=== PATIENT | male | born 1980 | race Caucasian/White ===

== ENCOUNTER 2016-11-13 19:46 | Inpatient (IN) ==
[2016-11-13] MEDS ORDERED: Aspirin 81 MG TAB.CHEW PO ONE (20:17)
[2016-11-13] MEDS ORDERED: *HR* Ticagrelor 90 MG TABLET PO ONE (20:18)
[2016-11-13] MEDS ORDERED: Aspirin 81 MG TAB.CHEW ONE (20:20)
[2016-11-13] MEDS ORDERED: BIVALIRUDIN IVC SCH (20:30)
[2016-11-13] MEDS ORDERED: SODIUM CHLORIDE 0.9% IVC SCH (20:30)
[2016-11-13 20:36] LABS: INR 1.2; Prothrombin Time 12.6 Seconds (9.4-12.1)
[2016-11-13] MEDS ORDERED: Nitroglycerin 1,000 MCG/10 ML VIAL IV ONE (20:36)
[2016-11-13] MEDS ORDERED: *HR* Heparin 10,000 UNIT/10 ML VIAL ONE (20:36)
[2016-11-13] MEDS ORDERED: 0.9 % Sodium Chloride 1,000 ML ONE ×2 (20:36→20:57)
[2016-11-13] MEDS ORDERED: Heparin 1,000 UNITS/500 mL NS 500 ML ONE (20:36)
[2016-11-13 20:38] LABS: Activated Partial Thrombo Time 29.1 Seconds (26.0-36.0)
[2016-11-13 20:39] LABS: Basophils % 0.3 %; Eosinophils % 0.2 %; Hematocrit 50.6 % (37.5-50.1); Hemoglobin 16.8 g/dL (12.9-16.9); Immature Granulocytes % 0.3 % (0-4); Lymphocytes # 1.9 K/mcL (0.6-4.6); Lymphocytes % 15.9 %; Mean Corpuscular HGB Conc 33.2 g/dL (31.6-35.5); Mean Corpuscular Hemoglobin 31.4 pg (28.0-33.3); Mean Corpuscular Volume 94.6 fL (83.0-100.0); Mean Platelet Volume 9.4 fL (9.4-12.4); Monocytes # 0.6 K/mcL (0.0-1.3); Monocytes % 5.4 %; Neutrophils # 9.3 K/mcL (1.6-8.9); Platelet Count 304 K/mcL (140-400); Red Blood Count 5.35 M/mcL (4.19-5.50); Red Cell Distribution Width 14.1 % (11.5-14.5); Segmented Neutrophils % 77.9 %
--- NOTE | 2016-11-13 20:40 | Pre-Sedation Evaluation ---
<Damian Patel - Last Filed: 11/13/16 21:22> Pre-sedation evaluation - Pre-sedation checklist Date of procedure: 11/13/16 Procedure: LHC and possible PCI Recent Vitals: Last Vital Signs Temp 0 F L 11/13/16 20:37 Pulse 82 11/13/16 20:37 Resp 16 11/13/16 20:37 BP 120/95 11/13/16 20:37 Pulse Ox 98 11/13/16 20:37 H&P (including ROS) documented in medical record: Yes Previous reaction to sedatives/anesthetics: No Dietary Status: No solid food in preceding 4 hrs and no liquid in preceding 2 hrs Airway Assessment: Patient can open mouth completely, TMJ function normal Dentition: No loose teeth or bridges Possible difficult airway: No ASA Classification *see protocol: CLASS III-Severe systemic disease Plan of Care: Pt appropriate candidate for procedure/moderate/conscious sedation , Risks/benefits of procedure/sedation discussed w/ patient/family, If not NPO; Risk of intake outweiged by necessity to perform procedure <Master Wynne - Last Filed: 11/14/16 02:12> Pre-sedation evaluation - Pre-sedation checklist Recent Vitals: Last Vital Signs Temp 0 F L 11/13/16 20:37 Pulse 80 11/13/16 20:51 Resp 11/13/16 20:51 BP 121/90 11/13/16 20:51 Pulse Ox 98 11/13/16 20:51
--- NOTE | 2016-11-13 20:43 | Cardiology History & Physical ---
Date of Encounter: 11/13/16 Time of Encounter: 20:40 Assessment and Plan (1) ST elevation (STEMI) myocardial infarction involving left anterior descending coronary artery Current Visit: Yes Status: Acute Acute anterior ST elevation AR. Patient will be taken to the catheter lab for urgent angiography and possible intervention. Risks benefits and alternatives explained to patient all questions answered. He agrees to proceed. He has been loaded with aspirin and presented to ER. Will check echocardiogram in a.m. we will institute beta blockers statins and ALFREDA inhibitors. The assessment and plan as outlined above was discussed with the patient and/or family members who expressed understanding and agreement. All questions were answered. History of Present Illness Chief complaint: Chest pain HPI: Mr. Finnegan is a 36 year old male no previous known cardiac history who presents to the ER with chest pain since 1 PM this afternoon. Associated with diaphoresis. EKG showed anterior ST elevations. He has severe generalized anxiety disorder and initially he thought it is having a panic attack. He describes severe midsternal chest pain nonradiating associated with some diaphoresis. He currently continues to have chest pain. His EKG shows anterior ST elevations in V2 through V6 and one in aVL. He says he had a syncopal episode 2 earlier today he is in normal sinus rhythm and is hemodynamically stable currently Past Med Surg Social Fam HX - Past Medical History Medical history: no medical history Psychiatric history: anxiety, bipolar, depression - Past Surgical History Surgical History: other - Social History Smoking Status: Current every day smoker Smokeless Tobacco Status: No Alcohol use: occasionally Drug use: opiates, marijuana, prescription drug abuse, other Medications and Allergies Gabapentin [Neurontin] 600 mg PO TID 05/13/15 [History] LORazepam [Ativan] 1 mg PO TID #15 tablet 05/14/15 [Rx] LORazepam [Ativan] 0.5 mg PO TID PRN #7 tablet 10/14/16 [Rx] Allergies No Known Allergies Allergy (Verified 11/13/16 19:49) All Systems Review: A 10-system review of systems was performed and is negative for pertinent findings except as documented above in the HPI. Physical Examination Vital Signs, Last 4 Hours Temp Pulse Resp BP Pulse Ox 11/13/16 20:37 0 F L 82 16 120/95 98 11/13/16 20:28 82 16 121/90 95 11/13/16 20:07 93 16 127/98 96 11/13/16 19:49 98.3 F 92 18 137/87 96 General: Conversant, No Apparent Distress HEENT: Atraumatic, Normocephaly, Mucus Membranes Moist Neck: No JVD, Normal carotid pulses Cardiac: Reg Rate and Rhythm, Normal S1 and S2, No Murmur Lungs: Normal Breath Sounds, No Wheeze, Rales, Rhonchi Neuro: Alert and responsive, No focal deficits noted Abdomen: Soft, Non-Tender Skin: No rashes noted on visualized skin Musculoskeletal: No Chest Wall Tenderness Extremities: No Clubbing, No Cyanosis, No Edema, Normal Pulses Results 11/13/16 20:20 Lab Results 11/13/16 20:20 INR 1.2 - EKG Interpretation EKG results cardiology: personally reviewed (Normal sinus rhythm acute anterolateral myocardial infarction)
[2016-11-13 20:44] LABS: Alanine Aminotransferase 25 Units/L (0-55); Albumin 4.2 g/dL (3.5-5.0); Albumin/Globulin Ratio 1.1 (1.1-2.2); Alkaline Phosphatase 107 Units/L (38-126); Aspartate Amino Transferase 70 Units/L (5-34); BUN/Creatinine Ratio 7 (6-26); Bilirubin,Direct 0.2 mg/dL (0.0-0.5); Bilirubin,Indirect 0.1 mg/dL (0.0-1.2); Bilirubin,Total 0.3 mg/dL (0.2-1.2); Blood Urea Nitrogen 6 mg/dL (8-26); Calcium 9.7 mg/dL (8.6-10.8); Carbon Dioxide 22 mEq/L (19-29); Chloride 103 mEq/L (98-109); Globulin 3.9 g/dL (2.4-3.5); Glucose 111 mg/dL (70-99); Osmolality,Calculated 284 (280-300); Sodium 138 mEq/L (136-145); Total Protein 8.1 g/dL (6.0-8.3); eGFR For African Americans > 60 (> 60); eGFR For Non-African Americans > 60 (> 60)
[2016-11-13 20:45] LABS: Potassium 4.4 mEq/L (3.5-4.5)
[2016-11-13] MEDS ORDERED: *HR* Bivalirudin 250 MG VIAL IVC ONE (20:45)
[2016-11-13] MEDS ORDERED: Tirofiban 5 MG/100ML 0 MG/0 ML BAG IV ONE (20:45)
[2016-11-13] MEDS ORDERED: *HR* FentaNYL (PF) 100 MCG/2 ML VIAL ONE (20:46)
[2016-11-13] MEDS ORDERED: *HR* Midazolam HCl 2 MG/2 ML VIAL ONE (20:46)
--- NOTE | 2016-11-13 20:59 | Emergency Department Note ---
Disposition Clinical Impression: ST elevation (STEMI) myocardial infarction involving left anterior descending coronary artery Disposition: Admitted As Inpatient Condition: Serious Time of Disposition: 20:51 Chest Pain HPI - General Chief Complaint: ED Psychiatric Symptoms Stated Complaint: Panic Attack w/ CP Time Seen by Provider: 11/13/16 20:17 Source: patient Limitations: no limitations Vital Signs Reviewed: Yes Nursing Notes Reviewed: Yes - History of Present Illness HPI Narrative: 36-year-old male with past medical history of anxiety and bipolar presents to emergency department complaining 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 He states that at 10 AM in the morning he began to feel anxious and thought that he was having a manic episode. Around 1300 he began having chest pain in his left anterior chest that did not radiate anywhere. He states that he was diaphoretic & intermittently nauseous. He thought it was a panic attack , but it just did not go away. He denies headache, dizziness, SOB, diarrhea, rashes. He does say that he was syncopal earlier in the day. He is a former IV drug user. He took a few Xanax earlier to try to calm his anxiety. He does also admit to smoking marijuana recreationally. He does not have a personal cardiac history, however he does state that his grandfather had an AL in his 40s. Severity scale (1-10): 8 - Related Data Home Medications Medication Instructions Recorded Confirmed Gabapentin [Neurontin] 600 mg PO TID 05/13/15 05/13/15 Previous Rx's Medication Instructions Recorded LORazepam [Ativan] 1 mg PO TID #15 tablet 05/14/15 LORazepam [Ativan] 0.5 mg PO TID PRN #7 tablet 10/14/16 Allergies Allergy/AdvReac Type Severity Reaction Status Date / Time No Known Allergies Allergy Verified 11/13/16 19:49 All systems ED: reviewed and negative except as stated. Chest Pain PMH - Past Medical History Medical history: Reports: no medical history Surgical history: Reports: other Psychiatric history: Reports: anxiety, bipolar, depression - Social History Smoking Status: Current every day smoker Alcohol use: Reports: occasionally Drug use: Reports: opiates, marijuana, prescription drug abuse, other Physical Exam General: Alert and in no acute distress Skin: Warm, dry, intact Head: Normocephalic and atraumatic Eye: PERRLA, EOMI Neck: Supple, trachea midline and no tenderness Cardiovascular: RRR, no murmur, normal perfusion, peripheral pulses equal b/l UE /LE Respiratory: CTAB, no wheezing, cough, or respiratory distress GI: Soft, nontender, nondistended. Bowel sounds present Musculoskeletal: Muscle strength 5/5, no tenderness, swelling or deformity Neuro: A&O to person, place, time and situation. 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 He states that at 10 AM in the morning he began to feel anxious and thought that he was having a manic episode. Around 1300 he began having chest pain in his left anterior chest that did not radiate anywhere. He states that he was diaphoretic & intermittently nauseous. He thought it was a panic attack , but it just did not go away. He denies headache, dizziness, SOB, diarrhea, rashes. He does say that he was syncopal earlier in the day. He is a former IV drug user. He took a few Xanax earlier to try to calm his anxiety. He does also admit to smoking marijuana recreationally. He does not have a personal cardiac history, however he does state that his grandfather had an AL in his 40s. Patient was brought directly back from triage after EKG revealed acute STEMI. ST Elevation in aVL, V2, V3, V4, V5, V6. Cardiology paged. Case discussed with Dr. Patel who requests ASA, Brilinta 180mg and angiomax to be dosed at clinical lab specialist dose by pharmacy. Patient to clinical lab specialist at 2050. - Consultations Consultation #1: Case discussed with Dr. Patel, inside sales coordinator Time: 20:15 Vital Signs Temperature 98.3 F 11/13/16 19:49 Pulse Rate 92 11/13/16 19:49 Respiratory Rate 18 11/13/16 19:49 Blood Pressure 137/87 11/13/16 19:49 O2 Sat by Pulse Oximetry 96 11/13/16 19:49 Temperature 97.9 F 11/14/16 04:00 Pulse Rate 62 11/14/16 04:31 Respiratory Rate 18 11/14/16 04:00 Blood Pressure 117/97 11/14/16 04:00 O2 Sat by Pulse Oximetry 97 11/14/16 04:00 Oxygen Delivery Oxygen Delivery Room Air Chest Pain - Medical Records Medical records reviewed: Yes I reviewed the patient's medical records. - Lab Data Lab results reviewed: Yes I reviewed the patient's lab results. Result diagrams: 11/14/16 03:17 11/14/16 03:17 Lab Results 11/13/16 11/13/16 11/13/16 Range/Units 20:11 20:20 20:20 WBC 11.9 H (4.3-11.1) K/mcL RBC 5.35 (4.19-5.50) M/mcL Hgb 16.8 (12.9-16.9) g/dL Hct 50.6 H (37.5-50.1) % MCV 94.6 (83.0-100.0) fL MCH 31.4 (28.0-33.3) pg MCHC 33.2 (31.6-35.5) g/dL RDW 14.1 (11.5-14.5) % Plt Count 304 (140-400) K/mcL MPV 9.4 (9.4-12.4) fL Immature Gran % 0.3 (0-4) % Seg Neutrophils % 77.9 % Lymphocytes % 15.9 % Monocytes % 5.4 % Eosinophils % 0.2 % Basophils % 0.3 % Neutrophils # 9.3 H (1.6-8.9) K/mcL Lymphocytes # 1.9 (0.6-4.6) K/mcL Monocytes # 0.6 (0.0-1.3) K/mcL Eosinophils # 0.0 (0.0-0.6) K/mcL Basophils # 0.0 (0.0-0.2) K/mcL PT 12.6 H (9.4-12.1) Seconds INR 1.2 APTT 29.1 (26.0-36.0) Seconds Sodium 138 (136-145) mEq/L Potassium 4.4 (3.5-4.5) mEq/L Chloride 103 (98-109) mEq/L Carbon Dioxide 22 (19-29) mEq/L BUN 6 L (8-26) mg/dL Creatinine 0.85 (0.72-1.25) mg/dL Est GFR ( Amer) > 60 (> 60) Est GFR (Non-Af Amer) > 60 (> 60) BUN/Creatinine Ratio 7 (6-26) Glucose 111 H (70-99) mg/dL POC Glucose (58-89) Calculated Osmolality 284 (280-300) Calcium 9.7 (8.6-10.8) mg/dL Total Bilirubin 0.3 (0.2-1.2) mg/dL Direct Bilirubin 0.2 (0.0-0.5) mg/dL Indirect Bilirubin 0.1 (0.0-1.2) mg/dL AST 70 H (5-34) Units/L ALT 25 (0-55) Units/L Alkaline Phosphatase 107 (38-126) Units/L Troponin I (0-0.03) ng/mL Serum Total Protein 8.1 (6.0-8.3) g/dL Albumin 4.2 (3.5-5.0) g/dL Globulin 3.9 H (2.4-3.5) g/dL Albumin/Globulin Ratio 1.1 (1.1-2.2) 11/13/16 11/13/16 Range/Units 20:20 21:41 WBC (4.3-11.1) K/mcL RBC (4.19-5.50) M/mcL Hgb (12.9-16.9) g/dL Hct (37.5-50.1) % MCV (83.0-100.0) fL MCH (28.0-33.3) pg MCHC (31.6-35.5) g/dL RDW (11.5-14.5) % Plt Count (140-400) K/mcL MPV (9.4-12.4) fL Immature Gran % (0-4) % Seg Neutrophils % % Lymphocytes % % Monocytes % % Eosinophils % % Basophils % % Neutrophils # (1.6-8.9) K/mcL Lymphocytes # (0.6-4.6) K/mcL Monocytes # (0.0-1.3) K/mcL Eosinophils # (0.0-0.6) K/mcL Basophils # (0.0-0.2) K/mcL PT (9.4-12.1) Seconds INR APTT (26.0-36.0) Seconds Sodium (136-145) mEq/L Potassium (3.5-4.5) mEq/L Chloride (98-109) mEq/L Carbon Dioxide (19-29) mEq/L BUN (8-26) mg/dL Creatinine (0.72-1.25) mg/dL Est GFR ( Amer) (> 60) Est GFR (Non-Af Amer) (> 60) BUN/Creatinine Ratio (6-26) Glucose (70-99) mg/dL POC Glucose 107 H (58-89) Calculated Osmolality (280-300) Calcium (8.6-10.8) mg/dL Total Bilirubin (0.2-1.2) mg/dL Direct Bilirubin (0.0-0.5) mg/dL Indirect Bilirubin (0.0-1.2) mg/dL AST (5-34) Units/L ALT (0-55) Units/L Alkaline Phosphatase (38-126) Units/L Troponin I 3.64 H* (0-0.03) ng/mL Serum Total Protein (6.0-8.3) g/dL Albumin (3.5-5.0) g/dL Globulin (2.4-3.5) g/dL Albumin/Globulin Ratio (1.1-2.2) - Radiology Data Radiology results reviewed: Yes I reviewed the patient's radiology results. Chest X-Ray 11/13/16 20:17 IMPRESSION: No acute cardiopulmonary abnormality. D/ / Xavier Thakur MD / Xavier Thakur MD Interpreting Provider: Xavier Thakur MD - EKG Data EKG attestation: Yes I reviewed and interpreted this EKG. EKG results narrative: Sinus rhythm with ST elevation in aVL, V2, V3, V4, V5, V6. No prior for comparision. Critical Care Time Critical Care Time: Yes Total Critical Care Time: 35 Attestation: Acute STEMI Attestation Statement - Attestation Attestation: Dr. Wynne: Patient seen in conjunction with resident Dr. Gonzalez: Please see her chart for complete documentation. I spent [id number] time with the patient and agree with the treatment and disposition. Patient has had chest pain at rest for 6-7 hours upon presentation. Diaphoresis really resolved. I improved at the time of evaluation but still present. No prior known heart disease. He smokes and admits to doing benzodiazepines orally from the street on a regular daily basis. Patient had delayed presentation today because he thought his chest pain was the same chest pain he always had anxiety. A ST elevation AL protocol was called the moment I reviewed the EKG I immediately talked with the inside sales coordinator Dr. Patel who called in the Grid Casting Machine Operator Helper team and took the patient to catheterization lab; the thread grinder ordered Z aspirin, Proventil, and Angiomax verbally.
[2016-11-13] MEDS ORDERED: Nitroglycerin 0.4 MG TAB.SUBL SL PRN (21:23)
[2016-11-13] MEDS ORDERED: Ondansetron 4 MG/2 ML VIAL IVP PRN (21:23)
[2016-11-13] MEDS ORDERED: *HR* OxyCODONE/APAP 5/325 TABLET PO PRN (21:23)
[2016-11-13] MEDS ORDERED: *HR* HYDROcodone/Acet 5/325 mg TABLET PO PRN (21:23)
[2016-11-13] MEDS ORDERED: 0.9 % Sodium Chloride 1,000 ML IVC SCH (21:30)
--- NOTE | 2016-11-13 21:38 | Invasive Diagnostic Lab ---
Name: Nakul Finnegan Date of Study: 11/13/2016 Date: 1980 Ht: 180.0 cm /70.9 in Medical Record#: [id number] Age: 36 Wt: 77.1 kg / 169.98 lb Account/Order#: [id number] Gender: Male BSA: 1.97 Order #: [id number] Fluoro Dose: 785 mGy BMI: 23.8 Procedure Physician: Damian Patel MD Referring MD: Referring MD: Procedures Performed: PCI of Acute NM LEFT HEART CATH Indications: STEMI Impressions: There is severe one vessel coronary artery disease. LV- Lower limits of normal, EF35% Patient had successful PTCA/Drug-Eluting Stent placement in the mid LAD. Recommendations: Optimal medical therapy of patient's disease. Aggressive risk factor modification. History/Risk Factors: Current/Recent Smoker Procedure Access obtained in the right Femoral artery by percutaneous puncture Patient had successful PTCA/Drug-Eluting Stent placement in the mid LAD. Complications: None Contrast: Isovue 149ml Closure Device: Perclose ProGlide Hemodynamics: Pressures Site Systolic/ A Wave Diastolic/ V Wave End Diastolic/ Mean HR AO 122 96 109 147 AO 106 89 98 85 LV 131 11 45 82 LV 102 43 48 85 AO 114 89 100 85 LV Ventriculography Ejection Method: LV Gram Ejection Fraction: 35% Wall Motion: BARGER Anterobasal Normal Anterolateral Mild Hypokinesis Apical: Akinesis Inferoapical Normal Inferobasal Normal Coronary Dominance: right Lesion Findings/Interventions * Left Main Coronary Artery The LMCA is angiographically free of disease. * Left Anterior Descending There is a 20 mm long, 90% stenosis in the Mid LAD. The lesion has a SERGIO flow of 2 and has no thrombus present. An intervention was performed on the Mid LAD with a final stenosis of 0%. There were no lesion complications. The final SERGIO flow was 3. * Circumflex The Circumflex is angiographically free of disease. The 1st Marginal is angiographically free of disease. * Right Coronary Artery The RCA is angiographically free of disease. The Right PDA is angiographically free of disease. Interventional Device(s) Vessel Segment Type Name Diameter (mm) Length (mm) Mid LAD Balloon NC Emerge 3 12 Mid LAD Drug Eluting Stent Synergy 2.75 20 Updated by Pennie Mar RT (R) on 11/13/2016 9:28:21 PM Damian Patel MD electronically signed on 11/13/2016 9:31:51 PM with status of Final
--- NOTE | 2016-11-13 21:50 | Invasive Diagnostic Lab Proc ---
Name: Nakul Finnegan Date of Study: 11/13/2016 Date: 1980 Ht: 70.9in Medical Record#: [id number] Age: 36 Wt: 169.98lb Gender: Male BSA: 1.97 Order #: [id number] BMI: 23.8 Physicians Procedure Physician: Damian Patel MD Referring MD: Referring MD: Staff Name Position Time In Sites, [facility] RT (R) Monitor 09:02 PM Adelaida Calderon RT (R) Scrub 09:02 PM Silvana Garg RN Certified Peer Specialist 09:03 PM Indications Indication STEMI Procedures Performed Procedure PRQ CARD REVASC [place] 1 VSL L HRT ARTERY/VENTRICLE ANGIO Pre-Procedure Checklist Informed consent is complete signed and on chart. H\\T\\P is on chart. ID band is on and ID verified with patient. Patient NPO for procedure The procedure was described for the patient and questions were answered. Blood Pressure: 118/72 ECG is on chart. Rhythm: NSR Plan of Care Patient will tolerate the procedure without complications. Adequate level of comfort will be maintained. Hemodynamics will remain stable Patient will recover from procedure without complications. Respiratory function will be maintained. Cardiac rhythm will remain stable. Patient temperature will be maintained. Patient and/or family have verbalized understanding of the procedure. Patient Education Chief Complaint/Reason for Test: Cardiac Cath Developmental Category: Adult (18-64 years) Developmentally Appropriate for Age: Yes Learning Barriers: None Education Needs: Procedure Education Method: Verbal Information Taught: Cardiac Cath Educational Evaluation: Able to repeat information Intravenous Access Time IV Size Location DC'd Fluid/Drip Rate Units RN 09:10 PM 18g 1 14" Patent On Arrival Lt Arm 0.9NaCl 25 ml/hr Silvana Garg RN 18g 1 14" Patent On Arrival Rt Antecubital Silvana Garg RN Allergies NKDA NO KNOWN DRUG ALLERGIES No Known Allergies Vital Signs Time BP (mmHg) HR (bpm) O2 Sat. RR (bpm) LOC 09:11 PM 132 / 87 82 97 % 16 5 = Fully awake and oriented or at pre-proc level 08:58 PM 132 / 87 82 97 % 15 09:03 PM 127 / 85 79 97 % 24 09:08 PM 118 / 72 88 94 % 15 09:13 PM 116 / 75 80 92 % 18 09:18 PM 126 / 74 82 92 % 19 09:23 PM 130 / 84 81 98 % 13 Procedural Medications Time Medication Dose Units Method Given By 09:03 PM Oxygen 2 L/min nasal cannula Silvana Garg RN 09:03 PM Versed 1 mg Intravenous Silvana Garg RN 09:03 PM Fentanyl 50 mcg Intravenous Silvana Garg RN 09:04 PM Lidocaine 2% 14 ml Subcutaneous Damian Patel MD 09:06 PM Nitroglycerin 200 mcg Intracoronary Damian Patel MD 09:08 PM Versed 1 mg Intravenous Silvana Garg RN 09:08 PM Fentanyl 50 mcg Intravenous Silvana Garg RN 09:08 PM Angiomax 1.75mg/kg/hr: 26 ml Intravenous Silvana Garg RN ASA Classification: Emergent Procedure: ASA score is assumed Sivakumar Score Preprocedure Postprocedure Activity 2- Moves 4 extremities sustained head lift Activity 2- Moves 4 extremities sustained head lift Circulation 2- SBP +/= 20 points of pre-anesthetic level Circulation 2- SBP +/= 20 points of pre-anesthetic level Consciousness 2- Awake and alert oriented x 3 Consciousness 2- Awake and alert oriented x 3 O2 Saturation 2- Able to maintain O2 satruation of 92% on room air O2 Saturation 2- Able to maintain O2 satruation of 92% on room air Respiratory 2- Able to deep breathe and cough well Respiratory 2- Able to deep breathe and cough well Total Score 10 Total Score 10 Contrast Agent: Isovue Diagnostic Contrast: 149 ml Total Contrast: 149 ml Fluoro Dose: 785 mGy Procedure Log Time Note Enter By 08:58 PM CathStat 08:58 PM Vitals capture started with the following parameters, Patient=Adult, Interval=5 min, Initial Kszqpjku=158 mmHg, Deflation Rate=5 mmHg, Cuff placed on Left Leg 08:58 PM Pt arrived to calibration laboratory technician 2 at 20:58 tsites 08:58 PM HR=82 bpm, EOQZ=693/87 mmhg, SpO2=97 %, Resp=15 B/min 09:01 PM Recorded ECG: HR=90 Condition=Condition 1 09:02 PM Physician arrived 21:02 tsites 09:02 PM Meet and greet completed tsites 09:02 PM Procedure start 21:02 tsites 09:02 PM Case Delayed No tsites 09:02 PM Patient charges- Angio tray pack, Navilyst 3mm J, Pulse Oximetry and ACIST tubing and transducer tsites 09:02 PM Pennie Mar RT (R) Position: Monitor Time in: 21:02 tsites 09:02 PM Adelaida Calderon RT (R) Position: Scrub Time in: 21:02 tsites 09:03 PM Silvana Garg RN Position: Certified Peer Specialist Time in: 21:03 tsites 09:03 PM Hair removed from procedure site in holding area using clippers. Bilateral groin prepped with Chloraprep by Pennie Mar RT (R) then patient draped. Skin intact. tsites 09:03 PM Time: 21:03 Oxygen on at 2 L/min per nasal cannula by Silvana Garg RN tsites 09: PM Time: 21:03 Versed 1 mg Intravenous Given by Silvana Garg RN tsites 09:03 PM Time: 21:03 Fentanyl 50 mcg Intravenous Given by Silvana Garg RN tsites 09:03 PM HR=79 bpm, UOLG=558/85 mmhg, SpO2=97.0 %, Resp=24 B/min 09:04 PM Time out performed according to hospital policy tsites 09:04 PM Time: 21:04 14 ml Lidocaine 2% to right groin Subcutaneous Given by Damian Patel MD tsites 09:04 PM Access obtained by percutaneous puncture. 6Fr 10cm Terumo [place] sheath placed in right Femoral artery. [id number] tsites 09:04 PM PCI Status Emergency tsites 09:04 PM 6Fr XB LAD 3.5 [place] Bright Tip guide catheter was used to cannulate the PCI vessel successfully. reused? No tsites 09:05 PM 0.035 145cm Navilyst 3mmJ wire [id number] tsites 09:05 PM Inflation device was opened. tsites 09:05 PM LCA angiography performed in multiple views. tsites 09:05 PM Recorded Pressure: Ao, QT=024, Condition=Condition 1 (Aorta) Ao 122/96/109 09:07 PM Time: 21:06 Nitroglycerin 200 mcg Intracoronary Given by Damian Patel MD tsites 09:08 PM Time: 21:08 Versed 1 mg Intravenous Given by Silvana Garg RN tsites 09:08 PM Time: 21:08 Fentanyl 50 mcg Intravenous Given by Silvana Garg RN tsites 09:08 PM Time: 21:08 Angiomax 1.75mg/kg/hr: 26 ml Intravenous Given by Silvana Garg RN Manzano pump tsites 09:08 PM .014 [place] 182cm guide wire across target lesion- successful. reused? No tsites 09:08 PM HR=88 bpm, XZLM=628/72 mmhg, SpO2=94 %, Resp=15 B/min 09:09 PM Lesion found in Mid LAD. Pre Stenosis: 90 Pre SERGIO Flow: tsites 09:09 PM Mid/Distal Left Anterior Descending Coronary Artery and diagonal branches with 90% stenosis. If graft is supplying this area, % stenosis tsites 09:12 PM 2.75mm x 20mm Synergy drug-eluting stent across target lesion- successful Lot #[id number] tsites 09:12 PM Stent deployed @ 16 sabiha for 20 seconds tsites 09:12 PM Stent delivery system removed intact. tsites 09:13 PM 3.0 mm x 12mm NC Emerge balloon across target lesion- successful. reused? No tsites 09:13 PM Balloon inflated @ 14 sabiha for 8 seconds tsites 09:13 PM HR=80 bpm, FNAH=647/75 mmhg, SpO2=92.0 %, Resp=18 B/min 09:15 PM Balloon inflated @ 14 sabiha for 5 seconds tsites 09:15 PM Guide wire removed intact. tsites 09:15 PM Balloon catheter removed intact. tsites 09:16 PM Guide catheter removed intact. tsites 09:16 PM 5Fr FR 4 catheter inserted over the wire [facility] tsites 09:16 PM RCA angiography performed in multiple views. tsites 09:17 PM Recorded Pressure: Ao, HR=85, Condition=Condition 1 (Aorta) Ao 106/89/98 09:17 PM Coronary Dominance: right tsites 09:17 PM Catheter removed tsites 09:17 PM 5Fr Pigtail catheter inserted over the wire [facility] tsites 09:18 PM Catheter selectively placed in left ventricle tsites 09:18 PM Recorded Pressure: LV, HR=82, Condition=Condition 1 (Left Ventricle) LV 131/11/45 09:18 PM HR=82 bpm, SROY=242/74 mmhg, SpO2=92.0 %, Resp=19 B/min 09:19 PM Recorded Pressure: LV, Ao, HR=85, Condition=Condition 1 (Left Ventricle) LV 102/43/48, (Aorta) Ao 114/89/100 09:19 PM Bolus angiogram of left Ventricle complete: 8 ml/sec for a total of 24 mls tsites 09:19 PM Bolus angiogram of right Femoral complete: 4 ml/sec for a total of 7 mls tsites 09:20 PM Procedure completed at 21:19 tsites 09:21 PM Sign out completed: Radiation Dose 785 mGy Fluoro Time: 4.1 Isovue 370 - 200ml contrast 149 ml given by Damian Patel MD. Complications: NoneCardiac Rehab Consult needed: YesConfirmed administered medications: Yes tsites 09:21 PM Isovue 370 - 500ml,1 Bottle(s) used. tsites 09:22 PM Arterial sheath pulled, perclose closure device used and was Successful S/N. tsites 09:22 PM Post ECG NSR tsites 09:22 PM Post Blood Pressure 126/74 tsites 09:23 PM 21:23 Post Pulses Bilateral DP \\T\\ PT 2+ tsites 09:23 PM Information taught Cardiac Cath, PCI, and Perlose tsites 09:23 PM Education needs Procedure, Plan of Care, and Responsibilities of Patient in Care tsites 09:23 PM Learning barriers :None tsites 09:23 PM Education Methods Verbal tsites 09:23 PM Education evaluation Able to repeat information tsites 09:23 PM Site status No bleeding/hematoma - Rt Groin as reported by Adelaida Calderon RT (R) at 21:23 tsites 09:23 PM Opsite applied tsites 09:23 PM Plavix, Effient or Brilinta given Yes in ER tsites 09:23 PM HR=81 bpm, SUDE=910/84 mmhg, SpO2=98.0 %, Resp=13 B/min 09:34 PM Report given to josse OAKES Pt taken to ICU Room #10. 21:33 tsites 09:34 PM Delay to floor No tsites 09:34 PM Patient out of room: 21:34 tsites Complications Complication None Hemodynamics Pressures Site Systolic/A Wave Diastolic/V Wave Mean AO 122 96 109 AO 106 89 98 LV 131 11 45 LV 102 43 48 AO 114 89 100 Post Procedure Information Blood Pressure: 126/74 mmHg Rhythm: NSR Post procedural instructions were given Closure Device Time Device Success/Fail 11/13/2016 9:24:00 PM Perclose ProGlide Successful Site Checks Time Location Status Staff Sheath In? Note 09:23 PM Rt Groin No bleeding/hematoma Adelaida Calderon RT (R) Pulses Time Site Pre-Procedure Post-Procedure Note 11/13/2016 9:11:00 PM Bilateral DP \\T\\ PT 2+ 9:23:00 PM Bilateral DP \\T\\ PT 2+ Updated by Pennie Isabela RT (R) on 11/13/2016 9:45:29 PM Pennie Isabela RT electronically signed on 11/13/2016 9:46:02 PM with status of Final
[2016-11-14 03:24] LABS: Basophils % 0.1 %; Eosinophils # 0.1 K/mcL (0.0-0.6); Eosinophils % 1.1 %; Hematocrit 48.6 % (37.5-50.1); Hemoglobin 15.9 g/dL (12.9-16.9); Immature Granulocytes % 0.5 % (0-4); Lymphocytes % 23.1 %; Mean Corpuscular HGB Conc 32.7 g/dL (31.6-35.5); Mean Corpuscular Hemoglobin 31.5 pg (28.0-33.3); Mean Corpuscular Volume 96.4 fL (83.0-100.0); Mean Platelet Volume 8.9 fL (9.4-12.4); Monocytes # 0.8 K/mcL (0.0-1.3); Monocytes % 9.2 %; Neutrophils # 5.8 K/mcL (1.6-8.9); Platelet Count 211 K/mcL (140-400); Red Blood Count 5.04 M/mcL (4.19-5.50); Red Cell Distribution Width 14.2 % (11.5-14.5)
[2016-11-14 03:39] LABS: BUN/Creatinine Ratio 9 (6-26); Blood Urea Nitrogen 6 mg/dL (8-26); Calcium 8.8 mg/dL (8.6-10.8); Carbon Dioxide 21 mEq/L (19-29); Chloride 108 mEq/L (98-109); Glucose 95 mg/dL (70-99); Osmolality,Calculated 285 (280-300); Potassium 3.8 mEq/L (3.5-4.5); Sodium 139 mEq/L (136-145); eGFR For African Americans > 60 (> 60); eGFR For Non-African Americans > 60 (> 60)
[2016-11-14] MEDS: Aspirin 81 MG TAB.CHEW PO SCH (07:58)
[2016-11-14] MEDS: *HR* Ticagrelor 90 MG TABLET PO SCH ×2 (07:58→21:05)
--- NOTE | 2016-11-14 09:00 | Cardiology Progress Note ---
Date of Encounter: 11/14/16 Time of Encounter: 09:00 Assessment and Plan (1) ST elevation (STEMI) myocardial infarction involving left anterior descending coronary artery Current Visit: Yes Status: Acute - acute anterior ST elevation [place], family history of GF age 46 - patient was taken to [facility] and blocker [facility] labor urgently for angiography and CARMEL placement to mid LAD, dual antiplatelet uninterrupted for 1 year - ECHO ordered, cath EF 35% - started on ASA, berlinta, statin, BB, lisinopril - switching to Toprol XL 25 mg, HR has been 60s with Lopressor 25 - stressed medication compliance with ASA and Berlinta for the next year without missed doses, he just got back on medicaid and concern for affordability of antiplatelet, will consult nursing home social worker - tobacco cessation recommended, he is a 1 ppd - cardiac rehab consulted (2) History of bipolar disorder Current Visit: Yes Status: Acute - history of bipolar II he reports, has been without medications for past several months he reports - normally takes Lamictal in conjunction with Ativan and Gabapentin - psychiatry has been consulted - reportedly he is trying to be established at [facility] in [place] (3) Tobacco abuse Current Visit: Yes Status: Acute - tobacco cessation recommended, states he will likely switch to vapor e-cig as he has done in the past - craving now, nicotine patch prn Discussion w patient/family: The assessment and plan as outlined above was discussed with the patient and/or family members who expressed understanding and agreement. All questions were answered. Thank you for involving us in the care of your patient. Please call with any questions. Subjective Principal diagnosis: STEMI Interval history: Patient seen and examined at bedside. Complains of mild chest pressure, but he admits to being very anxious still. It is not nearly as severe as when he arrived in the ED. Discussed his diagnosis and importance of medication compliance. Denies any shortness of breath, headache, lightheadedness, nausea. Requests to see psychiatry as he has been without antipsychotic medications the past several months. Objective Vital Signs, Last 4 Hours Temp Pulse Resp BP Pulse Ox 11/14/16 08:25 72 11/14/16 08:01 98.2 F 72 22 116/87 97 11/14/16 07:00 61 23 120/83 96 11/14/16 06:00 66 22 111/80 95 General: Conversant, No Apparent Distress HEENT: Atraumatic, Normocephaly, Mucus Membranes Moist Neck: No JVD, Normal carotid pulses Cardiac: Reg Rate and Rhythm, Normal S1 and S2, No Murmur Lungs: Normal Breath Sounds, No Wheeze, Rales, Rhonchi Neuro: Alert and responsive, No focal deficits noted Abdomen: Soft, Non-Tender Skin: No rashes noted on visualized skin Musculoskeletal: No Chest Wall Tenderness Extremities: No Clubbing, No Cyanosis, No Edema, Normal Pulses Results 11/14/16 03:17 11/14/16 03:17 Lab Results 11/14/16 11/14/16 03:17 03:17 WBC 8.8 Hgb 15.9 Hct 48.6 Plt Count 211 Sodium 139 Potassium 3.8 Chloride 108 Carbon Dioxide 21 BUN 6 L Creatinine 0.69 L Glucose 95 Calcium 8.8 - Imaging and Cardiology Chest Xray: report reviewed, image reviewed Echo: pending Cardiac cath: report reviewed - EKG Interpretation EKG results cardiology: personally reviewed (did not reveal EKG in ER, this was post-cath mild ST elevations in V2-V3), normal ECG, sinus rhythm Consult Discharge Plan - Plan Referrals: NO,PCP [Primary Care Provider] -
--- NOTE | 2016-11-14 15:44 | Consult Note ---
Date of Encounter: 11/14/16 Time of Encounter: 15:00 Assessment & Recommendation (1) History of bipolar disorder Current visit: Yes Status: Acute Assessment & Recommendation: Patient has a history of bipolar disorder and treatments as an inpatient and outpatient in addition to history of substance abuse including nicotine and caffeine alcohol marijuana and others. He has been noncompliant with his follow -up appointments and medication, he responded well to gabapentin and lorazepam and currently is taking this medication and he has an appointment scheduled as outpatient in a mental health's clinic. Recommend that patient continue his outpatient mental health's care and maintain his medication he also was encouraged to reduce his smoking and caffeine intake and refrain from using any drugs. Patient is stable to be discharged and there are no acute psychiatric condition at this time. Thank you for consultation. History of Present Illness Patient: new to practice Requesting Physician: Vannesa Dumas Reason for consult: bipolar History of present illness: Mr. Finnegan is a 36 year old male admitted to the hospital for evaluation of chest pain. Psychiatric consultation was requested to evaluate bipolar disorder and recommend medications. Patient was interviewed he tells me he had a history of bipolar disorder for many years until me that he has been hospitalized in several hospitals including this one for manic episodes, he was tried on different medication including Seroquel 200 lithium and also its and he responded best to combination of gabapentin and lorazepam. Patient told me that he is scheduled for outpatient appointments at a mental health agency to be established as the patient. He also has a history of substance abuse including marijuana and alcohol and in addition to smoking cigarettes and consuming large amounts of caffeine. Patient did not present any evidence of manic or hypomanic episodes or depressive episodes or suicidal symptoms. CC: Vannesa Dumas Past Med Surg Social Fam HX - Past Medical History Medical history: no medical history - Past Psychiatric History Psychiatric history: Reports: bipolar, previous psychiatric hospitalization Family psychiatric history: Unknown Family History of Suicide: Unknown - Past Surgical History Surgical History: other - Social History Smoking Status: Current every day smoker Smokeless Tobacco Status: No Alcohol use: occasionally Drug use: opiates, marijuana, prescription drug abuse, other Medications & Allergies Gabapentin [Neurontin] 1,600 mg PO HS 11/14/16 [History] Gabapentin [Neurontin] 800 mg PO BID 11/14/16 [History] LORazepam [Ativan] 1 mg PO BID 11/14/16 [History] Lamotrigine 200 mg PO HS 11/14/16 [History] Allergies No Known Allergies Allergy (Verified 11/14/16 09:41) Review of Systems Psychiatric: Reports: mood swings Mental Status Exam Patient orientation: Yes Person, Yes Time, Yes Place Level of alertness: Alert Patient appearance: Appropriate, Well Groomed Behavior: calm, cooperative Psychomotor activity: Normal Eye contact: Maintains Eye Contact Mood description: Euthymic/stable Affect description: congruent with mood, full range Speech pattern: Normal rate, Normal rhythm, Normal tone Speech volume: Normal Thought process: Linear, Goal Oriented Thought content: No Suicidal ideation, No Homicidal ideation, No Overt delusions Perceptual disturbances: No Auditory hallucinations, No Visual hallucinations Attention span: Capable of Focused Attention Memory description: Grossly Intact Patient reliability: Reliable Historian Intelligence estimate: Average Judgment: Limited Insight: Partial Results - Vital Signs Vital signs: Temp Pulse Resp BP Pulse Ox 98.2 F 60 14 110/80 95 11/14/16 08:01 11/14/16 15:24 11/14/16 14:00 11/14/16 14:00 11/14/16 14:00 - Labs Labs: Laboratory Last Values WBC 8.8 K/mcL (4.3-11.1) 11/14/16 03:17 RBC 5.04 M/mcL (4.19-5.50) 11/14/16 03:17 Hgb 15.9 g/dL (12.9-16.9) 11/14/16 03:17 Hct 48.6 % (37.5-50.1) 11/14/16 03:17 MCV 96.4 fL (83.0-100.0) 11/14/16 03:17 MCH 31.5 pg (28.0-33.3) 11/14/16 03:17 MCHC 32.7 g/dL (31.6-35.5) 11/14/16 03:17 RDW 14.2 % (11.5-14.5) 11/14/16 03:17 Plt Count 211 K/mcL (140-400) 11/14/16 03:17 MPV 8.9 fL (9.4-12.4) L 11/14/16 03:17 Immature Gran % 0.5 % (0-4) 11/14/16 03:17 Seg Neutrophils % 66.0 % 11/14/16 03:17 Lymphocytes % 23.1 % 11/14/16 03:17 Monocytes % 9.2 % 11/14/16 03:17 Eosinophils % 1.1 % 11/14/16 03:17 Basophils % 0.1 % 11/14/16 03:17 Neutrophils # 5.8 K/mcL (1.6-8.9) 11/14/16 03:17 Lymphocytes # 2.0 K/mcL (0.6-4.6) 11/14/16 03:17 Monocytes # 0.8 K/mcL (0.0-1.3) 11/14/16 03:17 Eosinophils # 0.1 K/mcL (0.0-0.6) 11/14/16 03:17 Basophils # 0.0 K/mcL (0.0-0.2) 11/14/16 03:17 PT 12.6 Seconds (9.4-12.1) H 11/13/16 20:20 INR 1.2 11/13/16 20:20 APTT 29.1 Seconds (26.0-36.0) 11/13/16 20:20 Sodium 139 mEq/L (136-145) 11/14/16 03:17 Potassium 3.8 mEq/L (3.5-4.5) 11/14/16 03:17 Chloride 108 mEq/L (98-109) 11/14/16 03:17 Carbon Dioxide 21 mEq/L (19-29) 11/14/16 03:17 BUN 6 mg/dL (8-26) L 11/14/16 03:17 Creatinine 0.69 mg/dL (0.72-1.25) L 11/14/16 03:17 Est GFR ( Amer) > 60 (> 60) 11/14/16 03:17 Est GFR (Non-Af Amer) > 60 (> 60) 11/14/16 03:17 BUN/Creatinine Ratio 9 (6-26) 11/14/16 03:17 Glucose 95 mg/dL (70-99) 11/14/16 03:17 POC Glucose 107 (58-89) H 11/13/16 21:41 Calculated Osmolality 285 (280-300) 11/14/16 03:17 Calcium 8.8 mg/dL (8.6-10.8) 11/14/16 03:17 Total Bilirubin 0.3 mg/dL (0.2-1.2) 11/13/16 20:20 Direct Bilirubin 0.2 mg/dL (0.0-0.5) 11/13/16 20:20 Indirect Bilirubin 0.1 mg/dL (0.0-1.2) 11/13/16 20:20 AST 70 Units/L (5-34) H 11/13/16 20:20 ALT 25 Units/L (0-55) 11/13/16 20:20 Alkaline Phosphatase 107 Units/L (38-126) 11/13/16 20:20 Troponin I 3.64 ng/mL (0-0.03) H* 11/13/16 20:20 Serum Total Protein 8.1 g/dL (6.0-8.3) 11/13/16 20:20 Albumin 4.2 g/dL (3.5-5.0) 11/13/16 20:20 Globulin 3.9 g/dL (2.4-3.5) H 11/13/16 20:20 Albumin/Globulin Ratio 1.1 (1.1-2.2) 11/13/16 20:20 Consult Discharge Plan - Plan Referrals: NO,PCP [Primary Care Provider] -
--- NOTE | 2016-11-14 16:12 | Electrocardiograph Report ---
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
--- NOTE | 2016-11-14 16:14 | Electrocardiograph Report ---
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
[2016-11-14] MEDS: Nicotine 21 MG PATCH.TD24 TD SCH (21:37)
--- NOTE | 2016-11-15 07:57 | ECHO - Doppler Report ---
Echocardiogram Name: Nakul Finnegan Date of Study: 11/14/2016 Date: 1980 Ht: 71.0 in Medical Record#: [id number] Age: 36 Wt: 169.0 lb Gender: Male BSA: 1.96 Order #: [id number] Location: [facility] Room #: IC10 Reading Physician: Clark Porter DO, RUBIA DUARTE FASNC Refuge Manager: Brittany Velazquez RDCS Ordering Physician: Xavier Singleton DO Primary Physician: None Indications: STEMI Impressions: LVEF 35%. Normal LV chamber size and wall thickness. Segmental left ventricular systolic dysfunction as described below. Normal left ventricular diastolic function. Normal right ventricular structure and function. No evidence of pulmonary hypertension. No significant valvular dysfunction. Recommend a repeat limited echocardiogram with Definity to evaluate LV apex for thrombus. Left Ventricular Wall Motion: Rest Echo Findings The apex, apical inferior, apical anterior, apical septal, apical lateral and mid anterior septal garner were hypokinetic. All other wall segments showed normal motion. Findings: Study Quality * Technically adequate exam. ECG Findings * Normal sinus rhythm. Left Ventricle * LVEF 35%. * Normal LV chamber size and wall thickness. * Segmental left ventricular systolic dysfunction as described below. * Normal left ventricular diastolic function. Right Ventricle * Normal right ventricular structure and function. Left Atrium * Normal left atrial size. Right Atrium * Normal right atrial size. Interatrial Septum * No evidence of PFO by color Doppler. Aortic Valve * Trileaflet aortic valve with normal function. * No aortic regurgitation. * No aortic stenosis. Mitral Valve * Normal mitral valve structure and function. * No mitral regurgitation. * No mitral stenosis. Tricuspid Valve * Normal tricuspid valve structure and function. * Trace tricuspid regurgitation. * No evidence of pulmonary hypertension. Pulmonic Valve * Normal pulmonic valve structure and function. * No pulmonic regurgitation. Aorta * Normally sized aortic root. Pericardium * The pericardium appears normal. IVC * Normal IVC dimensions and inspiratory collapse. Pulmonary Artery * Normal visualized portions of the main pulmonary artery. History Family History of CAD Measurements: BP: 104/ 66 2D Normal Values RVIDd: 3.25 cm <2.7 cm IVSd: .92 cm 0.6 - 1.0 cm LVIDd: 4.88 cm 3.7 - 5.6 cm LVPWd: .98 cm 0.6 - 1.1 cm LVIDs: 3.11 cm 1.5 - 3.6 cm AO: 2.60 cm < 4.0 cm LA: 4.10 cm 2.0 - 4.0cm %FS: 36.30 cm >25 % LA volume: 38 Mitral Valve Peak E:.81 m/sec Peak A:.51 m/sec E/A Ratio:1.6 Peak E' Lat Billy:14.2 cm/s Peak E' Med Billy:10.4 cm/s E/E' Lat Ratio:5.7 E/E' Med Ratio:7.7 Tricuspid Valve TV Regurg Peak Grad: 10.00mmHg TV Regurg Peak Billy: 1.61m/sec Updated by Clark Porter DO, FELICIA, RUBIA, BEA on 11/15/2016 7:48:08 AM electronically signed on 11/15/2016 7:52:22 AM with status of Final Wall Motion Kay: 1=Normal, 2=Hypokinesis, 3=Akinesis, 4=Dyskinesis, 5=Aneurysmal, 6=Hyperkinetic, X=Not Visualized (Blank)=Missing
[2016-11-15] MEDS: Nicotine 21 MG PATCH.TD24 TD SCH (08:27)
[2016-11-15] MEDS: *HR* Ticagrelor 90 MG TABLET PO SCH ×2 (08:29→21:04)
[2016-11-15] MEDS: Aspirin 81 MG TAB.CHEW PO SCH (08:29)
[2016-11-15] MEDS ORDERED: Metoprolol XL (24 HR) Succ 25 MG TAB.ER.24H PO SCH (09:00)
--- NOTE | 2016-11-15 09:34 | Cardiology Progress Note ---
<Xavier Singleton - Last Filed: 11/15/16 10:26> Date of Encounter: 11/15/16 Time of Encounter: 09:34 Assessment and Plan (1) ST elevation (STEMI) myocardial infarction involving left anterior descending coronary artery Current Visit: Yes Status: Acute - acute anterior ST elevation [place], family history of GF age 46 - patient was taken to label maker urgently for angiography and CARMEL placement to mid LAD, dual antiplatelet uninterrupted for 1 year - ECHO 11/14 EF 35%, segmental LV systolic dysfunction mostly hypokinesis to apical garner, recommended ECHO c enhancement to evaluate for LV thrombus - repeated limited ECHO ordered - continue ASA, berlinta, statin, BB, lisinopril - on Toprol XL 25 mg, HR 60s, currently 90s - stressed medication compliance with ASA and Berlinta for the next year without missed doses, he just got back on medicaid and concern for affordability of antiplatelet - clinical social worker consulted, much appreciated, will await affordaility of plavix vs berlinta, otherwise will get a free 30 day berlinta - tobacco cessation recommended, he is a 1 ppd, nicotine patch prn - cardiac rehab consulted - will transfer down to telemetry - anticipate discharge tomorrow (2) History of bipolar disorder Current Visit: Yes Status: Acute - history of bipolar II he reports, has been without medications for past several months he reports - normally takes Lamictal in conjunction with Ativan and Gabapentin - psychiatry consulted and appreciated, will restart on his home Gabapentin and Ativan at this time - reportedly he is trying to be established at [facility] in [place] (3) Tobacco abuse Current Visit: Yes Status: Acute - tobacco cessation recommended, states he will likely switch to vapor e-cig as he has done in the past - craving now, nicotine patch prn Discussion w patient/family: The assessment and plan as outlined above was discussed with the patient and/or family members who expressed understanding and agreement. All questions were answered. Thank you for involving us in the care of your patient. Please call with any questions. Subjective Principal diagnosis: STEMI Interval history: Patient seen and examined at bedside. Denies any complaints at this time. Evaluated by psychiatry and clinical social worker but he has not taken any of his psych meds. Denies chest pain, shortness of breath, nausea, abdominal pain, lightheadedness, or urinary complaints. Denies any blood stools or black tarry stools. Asks about discharge status, likely transfer to tele. Eating without difficulty. Objective Vital Signs, Last 4 Hours Temp Pulse Resp BP Pulse Ox 11/15/16 09:30 87 12 104/81 93 L 11/15/16 08:21 91 12 102/72 11/15/16 07:40 97.6 F 11/15/16 06:00 68 23 107/78 90 L General: Conversant, No Apparent Distress HEENT: Atraumatic, Normocephaly, Mucus Membranes Moist Neck: No JVD, Normal carotid pulses Cardiac: Reg Rate and Rhythm, Normal S1 and S2, No Murmur Lungs: Normal Breath Sounds, No Wheeze, Rales, Rhonchi Neuro: Alert and responsive, No focal deficits noted Abdomen: Soft, Non-Tender Skin: No rashes noted on visualized skin Musculoskeletal: No Chest Wall Tenderness Extremities: No Clubbing, No Cyanosis, No Edema, Normal Pulses (+2 pulses bilaterally), Other (right groin site normal appearing, no ecchymosis or erythema) Results 11/14/16 03:17 11/14/16 03:17 Consult Discharge Plan - Plan Referrals: NO,PCP [Primary Care Provider] - <James Jones - Last Filed: 11/15/16 10:54> Assessment and Plan Discussion w patient/family: The assessment and plan as outlined above was discussed with the patient and/or family members who expressed understanding and agreement. All questions were answered. Thank you for involving us in the care of your patient. Please call with any questions. Objective Vital Signs, Last 4 Hours Temp Pulse Resp BP Pulse Ox 11/15/16 09:30 87 12 104/81 93 L 11/15/16 08:21 91 12 102/72 11/15/16 07:40 97.6 F Results 11/14/16 03:17 11/14/16 03:17 Attestation: My signature below is to certify that this patient is under my care and that I, or nurse practitioner, or a physician's senior office assistant working with me, has a face-to -face encounter with this patient. Stable overnight OK to transfer out of ICU Repeat Echo ordered. Importance of DAPT (ASA and Brilinta reviewed) - social work on board. D/c possibly tomorrow
[2016-11-15] MEDS ORDERED: Gabapentin 400 MG CAPSULE PO SCH (09:45)
[2016-11-15] MEDS ORDERED: *HR* LORazepam 1 MG TABLET PO SCH (11:30)
[2016-11-15] MEDS ORDERED: *HR* HYDROcodone/Acet 5/325 mg TABLET PO PRN (14:51)
[2016-11-15] MEDS ORDERED: Nitroglycerin 0.4 MG TAB.SUBL SL PRN (14:51)
[2016-11-15] MEDS ORDERED: *HR* OxyCODONE/APAP 5/325 TABLET PO PRN (14:51)
[2016-11-15] MEDS ORDERED: Ondansetron 4 MG/2 ML VIAL IVP PRN (14:51)
[2016-11-15] MEDS: Gabapentin 400 MG CAPSULE PO SCH (16:34)
[2016-11-15] MEDS ORDERED: Perflutren Lipid Microsphere 1.3 ML in 0.9 % Sodium Chloride 8.7 ML IVP ONE (16:34)
[2016-11-15] MEDS ORDERED: *HR* Heparin 5,000 UNIT/ML VIAL IVP PRN ×2 (17:37)
[2016-11-15] MEDS ORDERED: *HR* Heparin 5,000 UNIT/ML VIAL IVP ONE (17:37)
[2016-11-15] MEDS ORDERED: Warfarin perPT PO PRN (18:00)
[2016-11-15] MEDS ORDERED: *HR* Warfarin 7.5 MG TABLET PO ONE (18:09)
[2016-11-15 18:27] LABS: Hematocrit 48.1 % (37.5-50.1); Immature Platelets 2.3 % (1.1-6.1); Mean Corpuscular HGB Conc 33.3 g/dL (31.6-35.5); Mean Corpuscular Hemoglobin 31.4 pg (28.0-33.3); Mean Corpuscular Volume 94.3 fL (83.0-100.0); Mean Platelet Volume 9.2 fL (9.4-12.4); Red Blood Count 5.1 M/mcL (4.19-5.50); Red Cell Distribution Width 14.2 % (11.5-14.5)
[2016-11-15 18:36] LABS: INR 1.3; Prothrombin Time 14.3 Seconds (9.4-12.1)
[2016-11-15 18:39] LABS: Activated Partial Thrombo Time 29.7 Seconds (26.0-36.0)
[2016-11-15] MEDS: Heparin 25,000 UNIT/500 ML D5W 25,000 UNIT/500 ML MLS IVC SCH (18:51)
[2016-11-15] MEDS: *HR* LORazepam 1 MG TABLET PO SCH (21:05)
[2016-11-16] MEDS ORDERED: Gabapentin 400 MG CAPSULE PO SCH ×2
[2016-11-16 00:30] LABS: Activated Partial Thrombo Time 172.5 Seconds (26.0-36.0)
[2016-11-16 00:36] LABS: Heparin anti-factor XA UFH 0.67 IU/mL (0.30-0.70)
[2016-11-16 05:05] LABS: INR 1.3; Prothrombin Time 13.9 Seconds (9.4-12.1)
[2016-11-16] MEDS: Gabapentin 400 MG CAPSULE PO SCH ×2 (08:14→21:37)
[2016-11-16] MEDS: Metoprolol XL (24 HR) Succ 25 MG TAB.ER.24H PO SCH (08:15)
[2016-11-16] MEDS: *HR* LORazepam 1 MG TABLET PO SCH ×2 (08:15→21:37)
[2016-11-16] MEDS: Nicotine 21 MG PATCH.TD24 TD SCH (08:16)
[2016-11-16] MEDS: Aspirin 81 MG TAB.CHEW PO SCH (08:16)
[2016-11-16] MEDS: *HR* Ticagrelor 90 MG TABLET PO SCH ×2 (08:16→21:37)
--- NOTE | 2016-11-16 10:06 | Cardiology Progress Note ---
Date of Encounter: 11/16/16 Time of Encounter: 10:02 Assessment and Plan (1) ST elevation (STEMI) myocardial infarction involving left anterior descending coronary artery Current Visit: Yes Status: Acute - acute anterior ST elevation [place], family history of GF age 46 - patient was taken to quality lab technician urgently for angiography and CARMEL placement to mid LAD, dual antiplatelet uninterrupted for 1 year - ECHO prelim suggests LV apical thrombus Will need heparin to Coumadin with A/c - goal INR 2-3 Triple therapy x 1 month, (ASA, Brilinta, and Coumadin) then either echo to reassess thrombus and stp A/c or stop ASA Risk of triple therapy (risk of increased bleeding) discussed in detail with the patient Maintain on Tele D/c with therapetic - patient wanting to be d/c 'd by Friday. (2) Tobacco abuse Current Visit: Yes Status: Acute - tobacco cessation recommended, states he will likely switch to vapor e-cig as he has done in the past - craving now, nicotine patch prn Discussion w patient/family: The assessment and plan as outlined above was discussed with the patient and/or family members who expressed understanding and agreement. All questions were answered. Thank you for involving us in the care of your patient. Please call with any questions. Subjective Principal diagnosis: STEMI Interval history: No complaints today - somewhat anxious Objective Vital Signs, Last 4 Hours Temp Pulse Resp BP Pulse Ox 11/16/16 08:25 102 11/16/16 07:54 97.6 F 88 18 121/81 98 General: Conversant, Other (skin novoa BUE) HEENT: Atraumatic, Normocephaly Neck: No JVD Cardiac: Reg Rate and Rhythm, Normal S1 and S2 Lungs: Normal Breath Sounds, No Wheeze, Rales, Rhonchi Neuro: Alert and responsive Abdomen: Soft, Non-Tender Skin: No rashes noted on visualized skin Musculoskeletal: No Chest Wall Tenderness Extremities: No Clubbing, No Edema Results 11/15/16 18:19 11/14/16 03:17 Lab Results 11/15/16 11/15/16 11/16/16 18:19 18:19 00:01 WBC 9.8 Hgb 16.0 Hct 48.1 Plt Count 280 INR 1.3 APTT 29.7 172.5 H* D 02/11/17 02/11/17 04:49 08:24 WBC Hgb Hct Plt Count INR 1.3 APTT 37.5 H D - Imaging and Cardiology Echo: pending, other (Prelim Echo = Probable Apical thrombus with EF ~ 35%) Consult Discharge Plan - Plan Referrals: NO,PCP [Primary Care Provider] -
--- NOTE | 2016-11-16 12:34 | ECHO - Doppler Report ---
Limited Echo with Imaging Enhancement Agent Name: Nakul Finnegan Date of Study: 11/15/2016 Date: 1980 Ht: 71.0 in Medical Record#: [id number] Age: 36 Wt: 169.0 lb Gender: Male BSA: 1.96 Order #: [id number] Location: [facility] Room #: 10 Reading Physician: Chata Allen DO Charrer: Vanessa Stuart Ordering Physician: Xavier Singleton DO Primary Physician: None Indications: Evaluate LV apex for thrombus, EF35, hypokine apex Impressions: LVEF 35-40%. Moderate global and regional LV systolic dysfunction. Although Definity could not be used on this study, there is concern for an LV thrombus as viewed in images #7 and 10. Cardiology service aware. Left Ventricular Wall Motion: Rest Echo Findings The apex, apical inferior, apical septal, apical lateral and mid anterior septal garner were hypokinetic. All other wall segments showed normal motion. Findings: Study Quality * Technically adequate exam. ECG Findings * Normal sinus rhythm. Left Ventricle * Definity echo contrast was not used. * LVEF 35-40%. * Concern for LV thrombus in image # 7 and 10. History Family History of CAD History of CAD/PTCA 11/14/2016 a Previous Echo was performed. Contrast: Definity 1.3 ml in 8.7 ml of saline 7 ml. Measurements: BP: 112/ 57 2D Normal Values IVSd: .95 cm 0.6 - 1.0 cm LVIDd: 5.05 cm 3.7 - 5.6 cm LVPWd: .85 cm 0.6 - 1.1 cm LVIDs: 4.10 cm 1.5 - 3.6 cm LA: 2.90 cm 2.0 - 4.0cm %FS: 18.80 cm >25 % LA volume: Updated by Chata Allen on 11/16/2016 12:29:24 PM electronically signed on 11/16/2016 12:29:58 PM with status of Final Wall Motion Kay: 1=Normal, 2=Hypokinesis, 3=Akinesis, 4=Dyskinesis, 5=Aneurysmal, 6=Hyperkinetic, X=Not Visualized (Blank)=Missing
[2016-11-16] MEDS ORDERED: *HR* Warfarin 7.5 MG TABLET PO ONE (18:00)
[2016-11-16] MEDS: Heparin 25,000 UNIT/500 ML D5W 25,000 UNIT/500 ML MLS IVC SCH (21:40)
[2016-11-17 05:07] LABS: Basophils % 0.4 %; Eosinophils # 0.1 K/mcL (0.0-0.6); Eosinophils % 1.5 %; Hematocrit 47.3 % (37.5-50.1); Hemoglobin 15.7 g/dL (12.9-16.9); INR 1.3; Immature Granulocytes % 0.2 % (0-4); Lymphocytes # 2.5 K/mcL (0.6-4.6); Lymphocytes % 29.1 %; Mean Corpuscular HGB Conc 33.2 g/dL (31.6-35.5); Mean Corpuscular Hemoglobin 31.4 pg (28.0-33.3); Mean Corpuscular Volume 94.6 fL (83.0-100.0); Mean Platelet Volume 9.2 fL (9.4-12.4); Monocytes # 0.7 K/mcL (0.0-1.3); Monocytes % 8.4 %; Neutrophils # 5.1 K/mcL (1.6-8.9); Platelet Count 249 K/mcL (140-400); Prothrombin Time 14.2 Seconds (9.4-12.1); Red Cell Distribution Width 14.2 % (11.5-14.5); Segmented Neutrophils % 60.4 %
[2016-11-17 05:09] LABS: Activated Partial Thrombo Time 64.9 Seconds (26.0-36.0)
[2016-11-17 05:11] LABS: BUN/Creatinine Ratio 15 (6-26); Blood Urea Nitrogen 12 mg/dL (8-26); Calcium 8.6 mg/dL (8.6-10.8); Carbon Dioxide 26 mEq/L (19-29); Chloride 104 mEq/L (98-109); Glucose 86 mg/dL (70-99); Osmolality,Calculated 289 (280-300); Potassium 3.4 mEq/L (3.5-4.5); Sodium 140 mEq/L (136-145); eGFR For African Americans > 60 (> 60); eGFR For Non-African Americans > 60 (> 60)
[2016-11-17] MEDS: Gabapentin 400 MG CAPSULE PO SCH ×2 (07:44→19:54)
[2016-11-17] MEDS: Metoprolol XL (24 HR) Succ 25 MG TAB.ER.24H PO SCH (07:44)
[2016-11-17] MEDS: Nicotine 21 MG PATCH.TD24 TD SCH (07:45)
[2016-11-17] MEDS: *HR* LORazepam 1 MG TABLET PO SCH ×2 (07:45→19:54)
[2016-11-17] MEDS: Aspirin 81 MG TAB.CHEW PO SCH (07:45)
[2016-11-17] MEDS: *HR* Ticagrelor 90 MG TABLET PO SCH ×2 (07:45→19:54)
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
[2016-11-17] MEDS: Heparin 25,000 UNIT/500 ML D5W 25,000 UNIT/500 ML MLS IVC SCH (17:46)
[2016-11-17] MEDS ORDERED: *HR* Warfarin 5 MG TABLET PO ONE (18:00)
[2016-11-18 05:16] LABS: INR 1.3; Prothrombin Time 14.5 Seconds (9.4-12.1)
[2016-11-18] MEDS: *HR* LORazepam 1 MG TABLET PO SCH ×2 (07:41→20:26)
[2016-11-18] MEDS: *HR* Ticagrelor 90 MG TABLET PO SCH ×2 (07:41→20:26)
[2016-11-18] MEDS: Aspirin 81 MG TAB.CHEW PO SCH (07:41)
[2016-11-18] MEDS: Metoprolol XL (24 HR) Succ 25 MG TAB.ER.24H PO SCH (07:41)
[2016-11-18] MEDS: Nicotine 21 MG PATCH.TD24 TD SCH (07:42)
[2016-11-18] MEDS: Gabapentin 400 MG CAPSULE PO SCH ×2 (07:42→20:25)
--- NOTE | 2016-11-18 10:31 | Cardiology Progress Note ---
Date of Encounter: 11/18/16 Time of Encounter: 08:20 Assessment and Plan (1) ST elevation (STEMI) myocardial infarction involving left anterior descending coronary artery Current Visit: Yes Status: Acute S/P acute anterior ST elevation [place] s/p PTCA and CARMEL to his mLAD. Dual antiplatelet uninterrupted for 1 year. ECHO suggests LV apical thrombus, Will need heparin to Coumadin with A/c - goal INR 2-3 Triple therapy x 1 month, (ASA, Brilinta, and Coumadin) then either echo to reassess thrombus and stp A/c or stop ASA D/c when therapeutic - discussed possibility of Lovenox --he cannot afford. Hopefully d/c in next couple of days. (2) Tobacco abuse Current Visit: Yes Status: Acute - tobacco cessation recommended, states he will likely switch to vapor e-cig as he has done in the past - craving now, nicotine patch prn (3) Cardiomyopathy Current Visit: Yes Status: Acute EF 35% with segmental LV dysfuction on TTE. Euvolemic on exam. CHF education. Serial echocardiograms. Continue toprol XL and zestril. Maximize as tolerated. Increase zestril to 5 mg daily. Low sodium diet. Qualifiers: Cardiomyopathy type: ischemic Qualified Code(s): I25.5 - Ischemic cardiomyopathy (4) History of bipolar disorder Current Visit: Yes Status: Acute History of bipolar II he reports, has been without medications for past several months. Has f/u at an out pt mental clinic. - normally takes Ativan and Gabapentin and did well - Seen by psychiatry here and was recommended to continue current therapy. (5) LV (left ventricular) mural thrombus following [facility] Current Visit: Yes Status: Acute Possible LV hrombus on TTE. Started on coumadin therapy with heparin bridge. Will require triple therapy. Goal INR 2.0-3.0. Coumadin clinic referral started. INR 1.3. Pharmacy dosing coumadin. Discussion w patient/family: The assessment and plan as outlined above was discussed with the patient and/or family members who expressed understanding and agreement. All questions were answered. Thank you for involving us in the care of your patient. Please call with any questions. Subjective Principal diagnosis: STEMI Interval history: Pt denies chest pain. No events over night. Objective Vital Signs, Last 4 Hours Temp Pulse Resp BP Pulse Ox 11/18/16 07:52 94 11/18/16 07:21 97.9 F 92 16 119/74 98 General: Conversant, No Apparent Distress HEENT: Atraumatic, Normocephaly, Mucus Membranes Moist Neck: No JVD, Normal carotid pulses Cardiac: Reg Rate and Rhythm, Normal S1 and S2, No Murmur Lungs: Normal Breath Sounds, No Wheeze, Rales, Rhonchi Neuro: Alert and responsive, No focal deficits noted Abdomen: Soft, Non-Tender Skin: No rashes noted on visualized skin Musculoskeletal: No Chest Wall Tenderness Extremities: No Clubbing, No Cyanosis, No Edema, Normal Pulses, Other (No right groin hematoma, no redness or drainage) Results 11/17/16 04:48 11/17/16 04:48 Lab Results 11/18/16 04:54 INR 1.3 APTT 69.0 H - EKG Interpretation EKG results cardiology: other (Telemetry shows NSR with occasional blocked PAC.) Consult Discharge Plan - Plan Referrals: Anupam Ramírez MD [Non-Partnered Physician] - 11/25/16 10:00 am NO,PCP [Primary Care Provider] - Clark Porter DO [Partnered Physician] - (OFFICE WILL CALL PATIENT AT HOME WITH APPOINTMENT) Prescriptions: Enoxaparin [Lovenox] 80 mg SQ Q12HR #5 syr
[2016-11-18] MEDS: Heparin 25,000 UNIT/500 ML D5W 25,000 UNIT/500 ML MLS IVC SCH (17:41)
[2016-11-18] MEDS ORDERED: *HR* Warfarin 5 MG TABLET PO SCH (18:00)
[2016-11-19 05:10] LABS: Basophils # 0.1 K/mcL (0.0-0.2); Basophils % 0.5 %; Eosinophils # 0.2 K/mcL (0.0-0.6); Eosinophils % 1.6 %; Hematocrit 42.5 % (37.5-50.1); Hemoglobin 14.6 g/dL (12.9-16.9); Immature Granulocytes % 0.2 % (0-4); Lymphocytes # 2.3 K/mcL (0.6-4.6); Lymphocytes % 24.2 %; Mean Corpuscular HGB Conc 34.4 g/dL (31.6-35.5); Mean Corpuscular Hemoglobin 32.2 pg (28.0-33.3); Mean Corpuscular Volume 93.8 fL (83.0-100.0); Mean Platelet Volume 9.4 fL (9.4-12.4); Monocytes # 0.8 K/mcL (0.0-1.3); Monocytes % 8.6 %; Platelet Count 235 K/mcL (140-400); Red Blood Count 4.53 M/mcL (4.19-5.50); Red Cell Distribution Width 14.2 % (11.5-14.5); Segmented Neutrophils % 64.9 %
[2016-11-19 05:15] LABS: INR 1.3; Prothrombin Time 14.6 Seconds (9.4-12.1)
[2016-11-19 05:18] LABS: Activated Partial Thrombo Time 67.1 Seconds (26.0-36.0)
[2016-11-19] MEDS: *HR* Ticagrelor 90 MG TABLET PO SCH (07:21)
[2016-11-19] MEDS: Gabapentin 400 MG CAPSULE PO SCH (07:21)
[2016-11-19] MEDS: Nicotine 21 MG PATCH.TD24 TD SCH (07:22)
[2016-11-19] MEDS: Aspirin 81 MG TAB.CHEW PO SCH (07:22)
[2016-11-19] MEDS: Metoprolol XL (24 HR) Succ 25 MG TAB.ER.24H PO SCH (07:22)
[2016-11-19] MEDS: *HR* LORazepam 1 MG TABLET PO SCH (07:22)
[2016-11-19 08:15] LABS: BUN/Creatinine Ratio 20 (6-26); Blood Urea Nitrogen 14 mg/dL (8-26); Calcium 8.8 mg/dL (8.6-10.8); Carbon Dioxide 26 mEq/L (19-29); Chloride 104 mEq/L (98-109); Glucose 92 mg/dL (70-99); Osmolality,Calculated 286 (280-300); Potassium 3.5 mEq/L (3.5-4.5); Sodium 138 mEq/L (136-145); eGFR For African Americans > 60 (> 60); eGFR For Non-African Americans > 60 (> 60)
[2016-11-19 11:19] VITALS: BP 113/75
--- NOTE | 2016-11-19 11:54 | Discharge Summary ---
Date of Encounter: 11/19/15 Time of Encounter: 11:53 - Discharge Diagnosis (1) ST elevation (STEMI) myocardial infarction involving left anterior descending coronary artery Priority: Primary Status: Acute (2) Tobacco abuse Priority: Secondary Status: Acute (3) Cardiomyopathy Priority: Primary Status: Acute Qualifiers: Cardiomyopathy type: ischemic Qualified Code(s): I25.5 - Ischemic cardiomyopathy (4) History of bipolar disorder Priority: Secondary Status: Chronic (5) LV (left ventricular) mural thrombus following [place] Priority: Primary Status: Acute - Discharge Medications Prescriptions: Nitroglycerin 0.4 mg SL Q5MIN PRN #25 tab.subl PRN Reason: Chest Pain Enoxaparin [Lovenox] 80 mg SQ Q12HR #5 syr Aspirin 81 mg PO DAILY #30 tab.chew Atorvastatin [Lipitor] 80 mg PO HS #30 tablet Lisinopril [Zestril] 2.5 mg PO DAILY #30 tablet Metoprolol XL (24 HR) Succ [Toprol Xl] 25 mg PO DAILY #30 tab.er.24h Nicotine Patch [Nicoderm] 21 mg TD DAILY #14 patch.td24 Ticagrelor [Brilinta] 90 mg PO BID #60 tablet Warfarin [Coumadin] 5 mg PO 1800 #30 tablet Home Medications: Gabapentin [Neurontin] 1,600 mg PO HS 11/14/16 [History] LORazepam [Ativan] 1 mg PO BID 11/14/16 [History] Enoxaparin [Lovenox] 80 mg SQ Q12HR #5 syr 11/17/16 [Rx] Aspirin 81 mg PO DAILY #30 tab.chew 11/19/16 [Rx] Atorvastatin [Lipitor] 80 mg PO HS #30 tablet 11/19/16 [Rx] Lisinopril [Zestril] 2.5 mg PO DAILY #30 tablet 11/19/16 [Rx] Metoprolol XL (24 HR) Succ [Toprol Xl] 25 mg PO DAILY #30 tab.er.24h 11/19/16 [ Rx] Nicotine Patch [Nicoderm] 21 mg TD DAILY #14 patch.td24 11/19/16 [Rx] Nitroglycerin 0.4 mg SL Q5MIN PRN #25 tab.subl 11/19/16 [Rx] Ticagrelor [Brilinta] 90 mg PO BID #60 tablet 11/19/16 [Rx] Warfarin [Coumadin] 5 mg PO 1800 #30 tablet 11/19/16 [Rx] Allergies/Adverse Reactions: Allergies No Known Allergies Allergy (Verified 11/14/16 09:41) Date of admission: 11/14/16 00:00 Primary care physician: Anupam Ramírez MD Consults: 11/14/16 09:00 Consult to Psychiatry [CONS] Routine Consulting Provider: Psychiatry [facility] Reason for Consult: Hx of Bipolar, without medications for several months Time Notified: 09:02 Call Completed: Yes Consult to Pocket Secretary Assembler [CONS] Routine Reason for SW Consult: STEMI, patient has questions on insurance and medication affordability Berlinta vs. Plavix. Please advise, thank you. Discharging clinician: Silverio Oneil Anticipated date of discharge: 11/19/16 - Patient Status Disposition: Home, Self-Care Condition: Good Functional capacity at discharge: independent ambulation Overall status at discharge: patient is progressing back to baseline - Discharge Instructions Follow Up With: Anupam Ramírez MD [Primary Care Provider] - 11/25/16 10:00 am Anthony Armas MD [Partnered Physician] - 11/27/16 9:30 am MELINDA,PCP [Non-Partnered Physician] - Additional Instructions: RISK FACTORS: STOP SMOKING: If you smoke, STOP. Smoking or tobacco use significantly increases your risk of heart disease because nicotine causes the arteries to narrow or constrict. It also causes fats to stick to the artery. Your chances of having a heart attack are greatly increased if you continue to smoke. For more information, call the education line for smoking cessation 8-415-CWPMCTN EAT A LOW FAT/CHOLESTEROL/SODIUM DIET: This diet may help reduce your chances of having a heart attack. LIFTING: Avoid lifting anything more than 10 pounds for 5-7 days Prior to straining, laughing, sneezing and/or coughing, apply manual pressure directly over insertion site. ACTIVITY: You may walk or climb stairs as tolerated You can resume sexual activity as tolerated In general, you are encouraged to engage in a minimum of 30 minutes or more of moderate intensity physical activity, such as brisk walking, daily or at least 3 -4 times weekly BATHING Do not submerge the site into water (bath tub, hot tub, swimming pool) for 1 week. This can be a source for infection into the blood stream. You may shower after 24 hours SITE CARE: After 24 hours, you may remove the dressing and leave the site open to air. Keep the site clean and dry. Clean gently and pat dry. You can expect bruising and tenderness that gradually resolve within a week or two. Return to work as instructed per your physician Resume driving as instructed per physician Keep all scheduled follow up appointments Resume medications as instructed IMPORTANT: If prescribed a Platelet Aggregation Inhibitor such as, Plavix, Brilinta or Effient: Duration of therapy is minimum one year These medications are often used in combination with Aspirin in prevention of future heart attacks Never discontinue unless consult with your Gear Setter STROKE (CVA) Risk factors for a stroke are: Age, cigarette smoking, diabetes, excessive alcohol consumption, family history, high blood pressure, overweight, physical inactivity, prior stroke, heart attack, diagnosis of carotid artery stenosis or other artery disease. Warning signs: Sudden numbness or weakness of the face, arm or leg; especially on one side of the body, sudden confusion, trouble speaking or understanding, sudden trouble seeing in one or both eyes, sudden trouble walking, dizziness, loss of balance or coordination, sudden severe headache with no cause. Call 911 or go to the Emergency Room. CONGESTIVE HEART FAILURE: If you have been diagnosed with Congestive Heart Failure (CHF) and your symptoms return, make an appointment with your physician Weigh yourself daily. Notify your physician if you have a weight gain of two or more pounds in one day or five or more pounds in one week. If you experience any difficulty breathing, please call 911 BLEEDING: Although the risk of bleeding is minimal, it can happen. If you have any bleeding from the site, apply firm pressure above the puncture site for 10-15 minutes. If the bleeding does not stop, continue manual pressure and call 911 Contact your physician if: You develop a fever greater than 101 degrees Fahrenheit Your site becomes reddened or has any drainage You have an increase in pain or burning at the site or if a large knot forms at the site. If you experience chest pain, shortness of breath, dizziness, or extreme tiredness, stop the activity and rest. Please notify your physicians office if you experience any of these symptoms and they are not relieved by rest please call 911! - Diet and Activity Activity: increase activity as tolerated - Hospital Course Hospital course: Mr. Finnegan is a 36 year old male pt presented with chest pain and was found to have acute anterior LA. S/p mLAD PTCA and CARMEL. There was no significant disease otherwise. EF severely reduced at 35%. There was no complications from the [facility]. TTE showed EF 35%- 40% with segmental and global dysfunction. Possible LV thrombus seen. Pt was started on coumadin therapy with heparin bridge. Pt is now being discharged with lovenox bridging. He will require triple therapy with asa, brilinta, and warfarin. LV thrombus can be re-evaluated in the out-pt setting with echo. It was recommended that he be re-evaluated for LV thrombus in one month or consider stopping asa after one month. Importance of DAPT with asa and brilinta uninterrupted for minimum of one year otherwise discussed. Pt voiced understanding. Coumadin teaching given and instructions on lovenox. INR ordered for 11/21/16. INR today was 1.3, he was given 10 mg coumadin 11/17/16 and 11/18/16. He will be discharged home on 5 mg daily. Coumadin clinic referral started. He is tolerating his medications. He is currently euvolemic. Kidney function remains normal. He was seen in psychiatric consult for his bipolar disorder. He was recommended to continue current therapy of ativan and neurontin. He unfortunately no-showed to multiple mental health visits and had difficulty getting refills. He is planning on going to a psychiatric clinic, [facility], in [place] to establish care. Aggressive risk factor modification reviewed. Smoking cessation discussed and he is ready to quit. He would like to use a nicotine patch. Healthy diet and exercise and CHF reviewed. Activity restrictions as described above reviewed. He voices understanding of all instructions and is ready for discharge. F/u made with Dr. Armas 11/27/16. Time spent discussing smoking cessation with patient: more than 10 minutes ( Agrees to nicotine patch) - Time Spent with Patient Total time spent providing and/or coordinating discharge services:1.5 hrs Greater than 30 minutes (d/c teaching, coumadin, cHF, lovenox teaching.) Physical Examination Vital Signs, Last 4 Hours Temp Pulse Resp BP Pulse Ox 11/19/16 11:17 98.1 F 71 16 113/75 95 11/19/16 11:00 77 General: Conversant, No Apparent Distress HEENT: Atraumatic, Normocephaly, Mucus Membranes Moist Neck: No JVD, Normal carotid pulses Cardiac: Reg Rate and Rhythm, Normal S1 and S2, No Murmur Lungs: Normal Breath Sounds, No Wheeze, Rales, Rhonchi Neuro: Alert and responsive, No focal deficits noted Abdomen: Soft, Non-Tender Skin: No rashes noted on visualized skin Musculoskeletal: No Chest Wall Tenderness Extremities: No Clubbing, No Cyanosis, No Edema, Normal Pulses, Other (No problems with right groin)
[2016-11-19] MEDS: Heparin 25,000 UNIT/500 ML D5W 25,000 UNIT/500 ML MLS IVC SCH (13:17)
== END 2016-11-19 15:40 | disposition home or self-care (01) | DRG 174 ==
LOC: ICNU 19:46 → EMEROO 19:46 → ICNU 20:51 → 2NNU 11-16 07:11
PROVIDERS: ADMIT Internal Medicine Interventional Cardiology; ATTEND Internal Medicine Interventional Cardiology